=== PATIENT | male | born 1975 | race Caucasian/White ===

== ENCOUNTER → 2021-03-23 16:52 | Outpatient (CLI) | payer MEDICAID, SELFPAY ==
--- NOTE | 2021-03-23 17:02 | XR_ITS ---
PROCEDURE INFORMATION: Exam: XR Right Calcaneus Exam date and time: 03/23/2021 5:02 PM Age: 45 years old Clinical indication: Pain; Heel; Right; Additional info: Foot pain TECHNIQUE: Imaging protocol: XR of the Right calcaneus. Views: 2 or more views. Total images: 2 COMPARISON: No relevant prior studies available. FINDINGS: Bones/joints: No evidence of calcaneal fracture. Severe osteoarthritic changes in the posterior articular facets of the talocalcaneal joint with subarticular sclerosis and marginal spurring. Large ossifications along the posterior joint line measuring up to 14 mm in size which seemed 2 irregular to represent an os trigonum, intra-articular ossification in the posterior recess is not excluded. Additional large periarticular ossifications are seen near the tip of the lateral malleolus measuring 16 mm and 7 mm, likely chronic posttraumatic ossifications. Given the size, this could contribute to lateral impingement with eversion at the ankle. No acute fractures. Soft tissues: Mild soft tissue swelling in the lateral ankle. No gross joint effusion. IMPRESSION: 1. No calcaneal fracture. 2. Severe subtalar osteoarthritic changes which are most pronounced along the posterior facet. 3. Large ossifications along the distribution of the posterior recess of the subtalar joint suspicious for intra-articular ossifications. This could contribute to posterior ankle impingement. 4. Large ossifications in the lateral ankle distal to the lateral malleolus which could contribute to lateral ankle impingement. 5. No acute fractures. 6. Mild lateral soft tissue swelling.
--- NOTE | 2021-03-23 17:02 | XR_ITS ---
PROCEDURE INFORMATION: Exam: XR Right Ankle Exam date and time: 03/23/2021 5:02 PM Age: 45 years old Clinical indication: Pain; Ankle; Right; Prior surgery; Surgery date: 6+ months; Surgery type: Hardware surgery; Additional info: Ankle pain TECHNIQUE: Imaging protocol: XR Right ankle. Views: 3 or more views. Total images: 3 COMPARISON: No relevant prior studies available. FINDINGS: Bones/joints: Medial straight plate fixation of the mid right tibial diaphysis partially visualized without gross hardware complication in the scan range. Chronic displaced fracture of the mid fibular diaphysis noted demonstrating solid bony union. Severe osteoarthritic changes in the posterior articular facets of the talocalcaneal joint with subarticular sclerosis and marginal spurring. Large ossifications along the posterior joint line measuring up to 14 mm in size which seemed 2 irregular to represent an os trigonum, intra-articular ossification in the posterior recess is not excluded. Additional large periarticular ossifications are seen near the tip of the lateral malleolus measuring 16 mm and 7 mm, likely chronic posttraumatic ossifications. Given the size, this could contribute to lateral impingement with eversion at the ankle. No acute fractures. Soft tissues: Mild soft tissue swelling in the lateral ankle.. IMPRESSION: 1. Severe subtalar osteoarthritic changes primarily involving the posterior subtalar facet. 2. Ossifications in the posterior joint recess distribution measuring up to 14 mm. The irregular contour goes against an os trigonum raises concern for large intra-articular ossific bodies which might contribute to posterior ankle impingement. 3. Large ossifications distal to the lateral malleolus are likely chronic posttraumatic ossifications but could potentially contribute to lateral impingement with eversion. 4. Mid tibial straight plate fixation without gross hardware complication. Chronic mid diaphyseal fracture of the fibula with solid bony union.
--- NOTE | 2021-03-23 17:02 | XR_ITS ---
PROCEDURE INFORMATION: Exam: XR Right Foot Complete; Alignment Exam date and time: 03/23/2021 5:02 PM Age: 45 years old Clinical indication: Pain; Foot; Right; Additional info: Foot pain TECHNIQUE: Imaging protocol: XR Right foot. Views: 3 or more views. Total images: 3 COMPARISON: No relevant prior studies available. FINDINGS: Bones/joints: Severe osteoarthritic changes in the posterior articular facets of the talocalcaneal joint with subarticular sclerosis and marginal spurring. Large ossifications along the posterior joint line measuring up to 14 mm in size which seemed 2 irregular to represent an os trigonum, intra-articular ossification in the posterior recess is not excluded. Additional large periarticular ossifications are seen near the tip of the lateral malleolus measuring 16 mm and 7 mm, likely chronic posttraumatic ossifications. Given the size, this could contribute to lateral impingement with eversion at the ankle. No acute fractures. Minor osteoarthritic changes in the 1st MTP joint. Minor degenerative spurring in the dorsal midfoot. Soft tissues: Mild soft tissue swelling in the lateral ankle. Mild lateral soft tissue swelling at the ankle. IMPRESSION: 1. Severe osteoarthritic changes in the subtalar joint. 2. Prominent ossifications in the distribution of the subtalar joint posterior recess suspicious for intra-articular ossifications which could contribute to posterior ankle impingement. 3. Large ossifications distal to the lateral malleolus which are likely posttraumatic in nature and could contribute to lateral ankle impingement. 4. Minor degenerative changes in the midfoot and 1st MTP joint.
== END ==
PROVIDERS: Visit Provider Podiatrist
DX: M25.571 Pain in right ankle and joints of right foot (principal); M79.671 Pain in right foot
CPT/HCPCS: 73610; 73630; 73650

== ENCOUNTER → 2021-05-23 13:29 | Outpatient (CLI) | payer MEDICAID, SELFPAY ==
--- NOTE | 2021-05-23 13:34 | CT_ITS ---
PROCEDURE: CT ANKLE RT WO CON CLINICAL HISTORY: pre-op planning, ankle pain COMPARISON: MR MR ANKLE RT WO/W CON from 05/23/2021 TECHNIQUE: Axial images obtained with sagittal and coronal reformats. All CT scans at the facility use one or more dose reduction, viz: automated exposure control, ma/kV adjustment per patient size (including targeted exams where dose is matched to indication, i.e. head), or iterative reconstruction technique. FINDINGS: There is a bone plate within the mid to distal shaft of the tibia medially. There is an old healed fracture at this region. An old healed displaced fracture is present at the mid to distal shaft of the fibula. There is medial displacement of the distal fracture fragment by approximately 1 cm. No acute fracture or dislocation is evident. The talar dome has an unremarkable appearance. There are numerous foci of calcifications along the medial malleolus and lateral malleolus as well as the medial lateral aspect of the talus and posterior to the talus which may be due to combination of ununited fragments, loose bodies, and heterotopic ossification. There are osteoarthritic changes at the subtalar joint anteriorly and posteriorly. 15 mm osseous body is noted posterior to the talocalcaneal joint. Osteoarthritic changes are present at the calcaneocuboid joint and talonavicular joint. No soft tissue mass or abnormal fluid collection. Periarticular soft tissue thickening noted at the ankle joint and talocalcaneal joint which could be related to joint effusion and or thickening of the joint capsule. IMPRESSION: 1. Prior ORIF of the mid to distal tibia with good alignment with healed fracture 2. Old healed fracture of the mid to distal shaft of the fibula with mild medial displacement of the distal fracture fragment 3. Degenerative/osteoarthritic changes of the ankle with loose bodies about the ankle Dictated by: Lj Duffy MD 05/24/2021 16:06 Lj Duffy MD in [facility] 05/24/2021 16:06
--- NOTE | 2021-05-23 14:23 | MR_ITS ---
PROCEDURE INFORMATION: Exam: MR Right Lower Extremity Joint Without and With Contrast; Ankle Exam date and time: 05/23/2021 2:23 PM Age: 45 years old Clinical indication: Pain; Ankle; Right; Additional info: Pre-op planning, chronic ankle pain. Swelling and pain in ankle. Lateral sided ankle pain x2yrs. 25ml prohance given. 17ml lot: [id number] exp: Feb 2023 8ml lot: [id number] exp: Apr [address] 05-23-21 TECHNIQUE: Imaging protocol: MR of the Right lower extremity without and with contrast. Exam focused on the ankle. Contrast material: PROHANCE; Contrast volume: 25 ml; Contrast route: IV; COMPARISON: 1. CT ANKLE RT WO CON 05/23/2021 2:13 PM (no report; images failed retrieval) 2. CR XR ANKLE WT BEARING RT MIN 3V 03/23/2021 5:03 PM (report not available) FINDINGS: Bones and cartilage: There is severe osteoarthritis of the subtalar joint, which is likely secondary to remote trauma in a patient of this age. Healed fractures of the tibial and fibular diaphyses are outside the field of view of the study. Chronic osteochondral bodies in the posterior ankle joint and adjacent to the medial and lateral malleoli are consistent with remote unhealed avulsion fracture fragments and/or foci of heterotopic ossification. There is no acute fracture or dislocation. No aggressive bone lesions are present. There is no evidence of osteomyelitis. Joint spaces: No significant joint effusion. LIGAMENTS: Distal tibiofibular syndesmosis: Unremarkable. No tear. Anterior talofibular ligament: The anterior talofibular ligament is poorly delineated and presumed torn. Posterior talofibular ligament: The posterior talofibular ligament is thickened and has intermediate signal intensity, consistent with prior low grade injury. Calcaneofibular ligament: The calcaneofibular ligament is incompletely visualized and presumed torn. Deltoid ligament complex: Unremarkable. No tear. TENDONS: Flexor tendons of foot: Mild tenosynovitis involves the flexor digitorum longus tendon. No tear. Fluid surrounding the flexor hallucis tendon has likely decompressed from the ankle joint. Tibialis posterior tendon: Mild tenosynovitis involves the tibialis posterior tendon. No tear. Peroneal tendons: Mild tenosynovitis involves the peroneal tendon sheath. No tear. Extensor tendons of foot: Unremarkable as visualized. Tibialis anterior tendon: Unremarkable. Achilles tendon: Unremarkable as visualized. Tarsal canal (Sinus tarsi): Abnormal signal intensity material nearly obliterates the fat in the sinus tarsi. The cervical ligament is poorly defined and may be partially torn. The appearance suggests sinus tarsi syndrome. Tarsal tunnel: Unremarkable. Muscles: The distal aspect of the adductor hallucis muscle is severely atrophied, which may represent remote injury to the muscle or a branch of the lateral plantar nerve. The tarsal tunnel region is normal. Soft tissues: Mild edema and enhancement involving the soft tissues around the ankle and hindfoot suggest inflammation. Plantar fascia: Mild thickening of the proximal plantar fascia has no significant surrounding edema, consistent with chronic mild plantar fasciitis (fasciopathy). IMPRESSION: 1. 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 2. Multiple osteochondral bodies within and surrounding the ankle joint likely representing a combination of ununited fracture fragments and foci of heterotopic ossification. 3. Probable full-thickness tears of the anterior talofibular and calcaneofibular ligaments. 4. Low-grade injury of the posterior talofibular ligament. 5. Findings suggestive of sinus tarsi syndrome. 6. Mild tenosynov
== END ==
PROVIDERS: Visit Provider Podiatrist
DX: M19.171 Post-traumatic osteoarthritis, right ankle and foot (principal); M25.571 Pain in right ankle and joints of right foot; T84.84XA Pain due to internal orthopedic prosthetic devices, implants and grafts, initial encounter; M25.871 Other specified joint disorders, right ankle and foot
CPT/HCPCS: 73700; 73723; A9576

== ENCOUNTER 2021-06-14 06:29 | Day surgery (SDC) | payer MEDICAID, SELFPAY ==
[2021-06-12 10:01] VITALS: BMI 37.5
[2021-06-14] VITALS (12 sets, daily range): BP systolic 101–162; BP diastolic 54–93; PULSE 80–95; RESP 14–18; TEMP 36.5–43; O2SAT 93–100
--- NOTE | 2021-06-14 07:08 | ECG_ITS ---
APPROVED REPORT Exam: Resting ECG HR:80 bpm ECG Measurements Heart Rate 80 AXES VA 160 P 20 QRSd 86 QRS -6 QT 364 T 9 QTc 419 Conclusion Normal sinus rhythm Normal ECG Electronically signed by : Hussain Barrett MD 06/14/2021 21:34:57
--- NOTE | 2021-06-14 08:44 | HMH.OPNOTE ---
Date of procedure: 06/14/21 Pre-op Diagnosis:: 1. Hx of closed nondisplaced fracture of body of right calcaneus with malunion 2. Right peroneal tendon tear 3. Post-traumatic osteoarthritis, right ankle and foot 4. Impingement of right ankle joint 5. Right foot pain 6. Equinus contracture of right ankle 7. Synovitis of right ankle 8. Right ankle instability 9. Tenosynovitis of right ankle 10. Right ankle loose body Post-op Diagnosis:: Same Procedure performed:: 1. Right subtalar joint arthrodesis 2. Right peroneal tendon debridement and repair x2 3. Right medial ankle arthrotomy 4. Right modified Brostrum ankle ligament stabilization 5. Right tendo achilles lengthening 5. Right ankle synovectomy 6. Right ankle loose body removal 7. Application of graft 8. Application of posterior U splint Surgeon:: Lubna Brito DPM Cashier Checker(s):: Leta Gould SUPERVISOR REFINING:: Delgado Feeback Anesthesia: GETA, regional (Right popliteal nerve block) Estimated blood loss (mL): 50 Clinical Note:: Patient is a 45-year-old male who presents with significant posttraumatic arthritis, and history of right tibia-fibula and calcaneal fracture. He has failed conservative care. After a long discussion with the patient in regards to the conservative versus surgical treatment for the arthritic deformity, the patient has elected to proceed with surgery because they have failed conservative treatment and continue to have pain and worsening symptoms affecting daily activities. The patient has been instructed on the planned procedure, all risk versus benefits of the procedure discussed. These include but are not limited to: bleeding, infection, nerve and blood vessel damage, need for further surgery, delay in healing of soft tissue or bone, failure of bones to heal, non-union, mal-union, failure of the implant, prolonged pain and recovery, CPRS/RSD, DVT and anesthetic complications including stroke/. No guarantees were given. All questions fully answered. The patient verbalized understanding and agreed to proceed with surgery. Written consent was obtained. Necessary labs and pre-op testing ordered: CBC, CMP, CXR, EKG, covid, vitamin D, nicotine/contine levels. Operative findings:: Minimal subtalar joint range of motion. Loose body ~1cm round noted to the lateral ankle gutter and under the fibula. Positive anterior ankle drawer noted. Synovitis within the ankle and subtalar joints. ATFL partially torn attenuated. Significant subtalar joint arthritis with a defect noted medially. Significant sclerosis of the joint cartilage. Fibrotic scar tissue and impingement noted to the STK and ankle joints. Peroneal tenosynovitis noted. A 3 cm longitudinal split tear noted in the peroneal brevis tendon. Less than 1 cm tear noted to the longus tendon. This case took 1 hour longer than normal due to the history of calcaneal fracture resulting in significant joint depression of the calcaneus, patient's body habitus, dissection through subcutaneous tissue and fibrotic sclerosis and scar tissue. Operative note:: On this date and time patient was deemed an appropriate surgical candidate. Anesthesia performed a pre-op regional popliteal nerve block. With informed consent signed, patient was taken to operating theater. Patient positioned supine. General anesthesia induced. IV Ancef 2g given. Tourniquet applied to the right thigh at 250 mmHg. Right Tendon Achilles Lengthening: Right limb prepped and draped in normal sterile fashion. Attention was directed to the posterior leg. Three stab incisions where made overlying the Achilles. Utilizing the three holes, percutaneous charo-section of the Achilles was performed with the foot maximally dorsiflexed. Release of the Achilles contracture was noted. The incisions were flushed with copious amounts of sterile saline and the wound was closed with 3-0 nylon. Right medial ankle arthrotomy, synovectomy: Attention was directed to the medial ankle where an incision
--- NOTE | 2021-06-14 09:48 | HMH.ANESCL ---
[facility] Anesthesia Checklist - Patient Identification Patient Identification: Arm Band - Structural Data Admitted From: Home Planned Operative Procedure/s: Right Subtalor Joint Fusion, Ankle Ligament Repair, Synovectomy Consent for Planned Operative Procedure(s) Verified: Yes Verified Documents: Surgical Consent, History and Physical - NPO Status Verified Time NPO: 00:00 - Additional verifications Anesthesia Reactions: No Hx Blood Transfusions: No Blood Transfusion Reaction: No - Airway Assessment C-Spine Mobility Assessed: Yes (mp2) TMJ Mobility Assessed: Yes Dentition: Good Dentition - Neurological Assessment Level of Consciousness: Awake, Alert - Anesthesia Plan Anesthesia Risk discussed: Yes Anesthesia Plan: Verified ASA Class: II Anesthesia Type: General w/block (Risks benefits of popliteal/saphenous nerve block explained. Pt verbalized understanding) [facility] History I have reviewed the patient's past medical history: Yes Medical History: Reports:: Hypertension Denies:: Cancer, Diabetes Mellitus Type 1, Diabetes Mellitus Type 2, Internal Pacemaker, MRSA, Seizures *Have you ever received a pneumonia vaccine?: No *Have you received a flu vaccine this season?: No Other Medical History: Reports: Other. Denies: Blood Transfusion Reaction Anesthesia experience/problems:: nac Laterality Cases: Bilateral: Carpal Tunnel Release Other Surgeries: Yes: Other. No: Pacemaker Amputation: No Fractures: Yes - *Social History Last grade of school completed: High school graduate Smoking Status: Current every day smoker Tobacco Type: cigarettes # Packs/Day (cigarettes): 1 Alcohol Intake: current Alcohol Intake Frequency:: holidays/special occasions only Substance Use Type: marijuana *Occupational Status:: unemployed Housing: house Household Members: family *Travel in the last 8 weeks: None Family Hx:: Cancer, Diabetes
--- NOTE | 2021-06-14 11:12 | SUR.OPER ---
[id number]-family updated at this time
--- NOTE | 2021-06-14 11:50 | SUR.OPER ---
1153-family updated at this time per ChelseaRN
--- NOTE | 2021-06-14 12:13 | XR_ITS ---
PROCEDURE: XR ANKLE RT 2V CLINICAL INDICATION: IN OR IMAGES. COMPARISON: CR XR ANKLE WT BEARING RT MIN 3V from 03/23/2021 FINDINGS: Fluoroscopy time: 2.07 minutes. Two view submitted with the C-arm demonstrates screw fixation of the talocalcaneal joint with [address] with good alignment on these limited images. IMPRESSION: Status post lag screw fixation of the talocalcaneal joint with good alignment. Dictated by: Lj Duffy MD 06/14/2021 13:07 Lj Duffy MD in [facility] 06/14/2021 13:07
--- NOTE | 2021-06-14 13:00 | XR_ITS ---
PROCEDURE: XR CALCANEUS RT MIN 2V XR ankle right 2-3 views XR foot right 2-3 views CLINICAL INDICATION: Post op STJ AD COMPARISON: CR XR ANKLE WT BEARING RT MIN 3V from 03/23/2021 CR XR FOOT RT MIN 3V from 06/14/2021 CR XR ANKLE RT 2V from 06/14/2021 CR XR ANKLE RT 2V from 06/14/2021 FINDINGS: Right calcaneus: Status post lag screw fixation of the subtalar joint with screws projecting from the calcaneus into the talus with good alignment. Cast is in place. Right ankle: Good alignment of the ankle joint. Mild osteoarthritic changes of the ankle. Prominent loose body versus os trigonum posteriorly.. Prior ORIF distal tibia with medial bone plate with an old fracture of the distal shaft of the fibula Right foot: There is a cast in place. Osteoarthritic changes of the talonavicular and tarsal metatarsal junction dorsally. No fracture or dislocation. IMPRESSION: Status post screw fixation of the subtalar joint with good alignment and degenerative changes as described above Dictated by: Lj Duffy MD 06/14/2021 14:05 Lj Duffy MD in [place] 06/14/2021 14:05
--- NOTE | 2021-06-14 13:53 | HMH.ANESI ---
[facility] Anesthesia Record Part I Intake, IV Amount: 1,600 Estimated blood loss (mL): 50 Urine output (mL): 500 Blood Pressure: 106/54 SaO2: 96 Pulse Rate: 95 Respiratory Rate: 18 Temperature: 98.5 F Patient is:: Drowsy, Stable Stable to PACU at:: 13:20
--- NOTE | 2021-06-14 13:59 | SUR.OPER ---
1300-family updated at this time
--- NOTE | 2021-06-14 15:28 | P.PN_ITS ---
[facility] Anesthesia Record Part II Discharge Time: 13:50 Destination: Surgical Day Care (OP Surgery) PACU nurse assessment reviewed?: Yes Patient Condition:: Good Anesthesia Complications:: None Swallowing reflex intact?: Yes Cyanosis?: No Blood Pressure: 124/69 Pulse Rate: 82 Temperature: 98 F Mental Status: Alert & Oriented Pain level:: 0 Nausea and/or vomitting:: None Intake, IV Amount: 0
[2021-06-14 16:11] LABS: Microscopic,Cath URINE MICROSCOPIC (MICROSCOPIC)
[2021-06-14 16:17] LABS: Appearance,Urine/Cath SL CLOUDY (Clear); Bilirubin,Cath Negative (Negative); Blood, Urine/Cath TRACE-I (Negative); Color,Urine/Cath YELLOW (Yellow); Glucose,Urine/Cath (UA) Negative (Negative); Ketones,Urine/Cath Negative (Negative); Leukocyte Esterase,Cath Negative (Negative); Nitrate,Cath Negative (Negative); PH,Urine/Cath 5.5 (5.0-8.5); Protein,Urine/Cath Negative (Negative); Specific Gravity, Urine/Cath >= 1.030 (1.005-1.030); Urobilinogen,Cath 0.2 EU/dl (0.2)
[2021-06-14 16:38] LABS: RBC,Urine/Cath Occasional # /hpf (0-3)
== END 2021-06-14 14:50 | disposition home or self-care (01) ==
PROVIDERS: Visit Provider Podiatrist
PROC: (CPT 28725; principal; 2021-06-14 08:30)
DX: M19.171 Post-traumatic osteoarthritis, right ankle and foot (principal); M25.871 Other specified joint disorders, right ankle and foot; M65.871 Other synovitis and tenosynovitis, right ankle and foot; M25.371 Other instability, right ankle; M66.371 Spontaneous rupture of flexor tendons, right ankle and foot; M24.571 Contracture, right ankle; M21.6X1 Other acquired deformities of right foot; G89.21 Chronic pain due to trauma
CPT/HCPCS: 28725; 27658; 27626; 27620; 15275; 73600; 73630; 73650; 76000; 81001; 93005; 96374; C1713; C1734; C1762; J2405; J2710; Q4211